=== PATIENT | male | born 1980 | race Caucasian/White ===

== ENCOUNTER 2017-12-20 20:13 | Emergency (ER) | payer OTHER, SELFPAY ==
--- NOTE | 2017-12-20 20:23 | EDPHYS ---
Physician Documentation [facility] Name: Juan Diego Morgan Age: 37 yrs Sex: Male : 1980 Arrival Date: 12/20/2017 Time: 20:14 Bed 4 Private MD: ED Physician Miguel Ontiveros HPI: 12/20 20:16 This 37 yrs old Male presents to ER via Unassigned with complaints of drug gopal abuse, fear of seizures. 20:16 The patient presents with trouble concentrating. Onset: The symptoms/episode gopal began/occurred just prior to arrival. Possible causes: drug use, benzodiazepines, vicodin, soma. Associated signs and symptoms: The patient has no apparent associated signs or symptoms. Current symptoms: In the emergency department the patient's symptoms are unchanged from the initial presentation. Patient's baseline: Neuro: alert and fully oriented. The patient has experienced similar episodes in the past, multiple times. Historical: - Allergies: 20:24 No Known Allergies; tl2 - Home Meds: 20:24 Soma Oral [Active]; Vicodin 5/500 Oral [Active]; Xanax Oral [Active]; tl2 - PMHx: 20:24 Chronic Abdominal Pain; Depression; Seizures; tl2 - Immunization history:: Adult Immunizations up to date. - Social history:: Smoking status: Patient/guardian denies using tobacco, Patient uses street drugs. - Family history:: not pertinent. - Ebola Screening: : No symptoms or risks identified at this time. ROS: 20:16 Constitutional: Negative for fever, chills, and weight loss, Eyes: Negative for injury, gopal pain, redness, and discharge, ENT: Negative for injury, pain, and discharge, Neck: Negative for injury, pain, and swelling, Cardiovascular: Negative for chest pain, palpitations, and edema, Respiratory: Negative for shortness of breath, cough, wheezing, and pleuritic chest pain, Abdomen/GI: Negative for abdominal pain, nausea, vomiting, diarrhea, and constipation, Back: Negative for injury and pain, : Negative for injury, bleeding, discharge, and swelling, MS/Extremity: Negative for injury and deformity, Skin: Negative for injury, rash, and discoloration, Psych: Negative for depression, anxiety, suicide ideation, homicidal ideation, and hallucinations, Allergy/Immunology: Negative for hives, rash, and allergies, Endocrine: Negative for neck swelling, polydipsia, polyuria, polyphagia, and marked weight changes. 20:16 Neuro: Positive for slurred speech. Exam: 20:16 Constitutional: This is a well developed, well nourished patient who is awake, alert, gopal and in no acute distress. Head/Face: Normocephalic, atraumatic. Eyes: Pupils equal round and reactive to light, extra-ocular motions intact. Lids and lashes normal. Conjunctiva and sclera are non-icteric and not injected. Cornea within normal limits. Periorbital areas with no swelling, redness, or edema. ENT: Nares patent. No nasal discharge, no septal abnormalities noted. Tympanic membranes are normal and external auditory canals are clear. Oropharynx with no redness, swelling, or masses, exudates, or evidence of obstruction, uvula midline. Mucous membranes moist. Neck: Trachea midline, no thyromegaly or masses palpated, and no cervical lymphadenopathy. Supple, full range of motion without nuchal rigidity, or vertebral point tenderness. No Meningismus. Chest/axilla: Normal chest wall appearance and motion. Nontender with no deformity. No lesions are appreciated. Cardiovascular: Regular rate and rhythm with a normal S1 and S2. No gallops, murmurs, or rubs. Normal PMI, no JVD. No pulse deficits. Respiratory: Lungs have equal breath sounds bilaterally, clear to auscultation and percussion. No rales, rhonchi or wheezes noted. No increased work of breathing, no retractions or nasal flaring. Abdomen/GI: Soft, non-tender, with normal bowel sounds. No distension or tympany. No guarding or rebound. No evidence of tenderness throughout. Back: No spinal tenderness. No costovertebral tenderness. Full range of motion. Male : Normal genitalia with no discharge or lesions. Skin: Warm, dry with normal turgor. Normal color with no rashes, no lesions, and no evidence of cellulitis. MS/ Extremity: Pulses equal, no cyanosis. Neurovascular intact. Full, normal range of motion. Psych: Awake, alert, with orientation to person, place and time. Behavior, mood, and affect are within normal limits. 20:16 Neuro: Orientation: is normal, appropriate for stated age, no acute changes, Mentation: is normal, no acute changes, slow to respond, Memory: is normal, appropriate for stated age, no acute changes, Cranial nerves: grossly normal, is grossly normal based on the patient's age, no acute changes, Cerebellar function: is grossly normal, is grossly normal based on the patient's age, no acute changes, Motor: is normal, is grossly normal based on the patient's age, Sensation: is normal, no obvious gross deficits, Gait: not tested. Deep tendon reflexes are 2+ (normal) in the bilateral brachioradialis, bicep, tricep and patellar and Achilles tendons, seizure activity, is not displayed by the patient. Vital Signs: 20:24 tl2 20:24 Pt refused vitals tl2 MDM: 20:14 Patient medically screened. gopal Administered Medications: No medications were administered Disposition: 12/20/17 20:22 Discharged to Home. Impression: Abuse of non-psychoactive substances. - Condition is Stable. - Discharge Instructions: Substance Use Disorder. - Medication Reconciliation Form, Thank You Letter, Antibiotic Education, Prescription Opioid Use form. - Follow up: Private Physician; When: 2 - 3 days; Reason: Recheck today's complaints, Continuance of care, Re-evaluation by your physician. - Problem is new. - Symptoms have improved. Signatures: Miguel Ontiveros MD MD cha Knox, Taylor RN RN tl2 Corrections: (The following items were deleted from the chart) 20:55 20:22 12/20/2017 20:22 Discharged to Home. Impression: Abuse of non-psychoactive tl2 substances. Condition is Stable. Forms are Medication Reconciliation Form, Thank You Letter, Antibiotic Education, Prescription Opioid Use. Follow up: Private Physician; When: 2 - 3 days; Reason: Recheck today's complaints, Continuance of care, Re-evaluation by your physician. Problem is new. Symptoms have improved. gopal
--- NOTE | 2017-12-20 20:57 | ER ---
Nurse's Notes [facility] Name: Juan Diego Morgan Age: 37 yrs Sex: Male : 1980 Arrival Date: 12/20/2017 Time: 20:14 Bed 4 Private MD: Diagnosis: Abuse of non-psychoactive substances Presentation: 12/20 20:21 Presenting complaint: EMS states: Pt was taking xanax, vicodin and soma and was afraid tl2 he was going to have a seizure. No seizure activity witnessed. Transition of care: patient was not received from another setting of care. Onset of symptoms was December 20, 2017 at 20:22. Risk Assessment: Do you want to hurt yourself or someone else? Patient reports no desire to harm self or others. Initial Sepsis Screen: Does the patient meet any 2 criteria? No. Patient's initial sepsis screen is negative. Does the patient have a suspected source of infection? No. Patient's initial sepsis screen is negative. Care prior to arrival: Medication(s) given: Normal saline infusion, 100 mL IV initiated. 18 GA, in the right antecubital area, Glucose check: 97. 20:21 Method Of Arrival: EMS: [facility] tl2 20:21 Acuity: GEOVANY 4 tl2 Triage Assessment: 20:24 General: Appears in no apparent distress. uncomfortable, Behavior is agitated, tl2 uncooperative. Pain: Denies pain. Neuro: Level of Consciousness is awake, alert, Oriented to person, place, time, situation. Cardiovascular: Denies chest pain. Respiratory: Airway is patent Respiratory effort is even, unlabored, Respiratory pattern is regular, symmetrical. GI: No signs and/or symptoms were reported involving the gastrointestinal system. Derm: Skin is pink, warm \T\ dry. Historical: - Allergies: 20:24 No Known Allergies; tl2 - Home Meds: 20:24 Soma Oral [Active]; Vicodin 5/500 Oral [Active]; Xanax Oral [Active]; tl2 - PMHx: 20:24 Chronic Abdominal Pain; Depression; Seizures; tl2 - Immunization history:: Adult Immunizations up to date. - Social history:: Smoking status: Patient/guardian denies using tobacco, Patient uses street drugs. - Family history:: not pertinent. - Ebola Screening: : No symptoms or risks identified at this time. Screenin:26 Abuse screen: Denies threats or abuse. Nutritional screening: No deficits noted. tl2 Tuberculosis screening: No symptoms or risk factors identified. Fall Risk None identified. Assessment: 20:26 General: see triage assessment. Pt is refusing medical care and stating for the tl2 officers to just take him to custodial. MD at bedside speaking to pt. states that pt can be taken into custody. Awaiting dispo. 20:53 Reassessment: Pt verbalized understanding of leaving without medical treatment and that tl2 he would be leaving with law enforcement. Vital Signs: 20:24 tl2 20:24 Pt refused vitals tl2 ED Course: 20:14 Patient arrived in ED. [facility] 20:14 Miguel Ontiveros MD is Attending Physician. [facility] 20:19 Patricia Long, RN is Primary Nurse. tl2 20:23 Triage completed. tl2 20:24 Arm band placed on right wrist. tl2 20:26 Patient has correct armband on for positive identification. Bed in low position. Call tl2 light in reach. Side rails up X2. Security at bedside. 20:26 Maintain EMS IV. Dressing intact. Good blood return noted. Site clean \T\ dry. Gauge \T\ tl 2 site: 18 g R AC. 20:54 No provider procedures requiring assistance completed. IV discontinued, intact, tl2 bleeding controlled, No redness/swelling at site. Pressure dressing applied. Administered Medications: No medications were administered Outcome: 20:22 Discharge ordered by . [facility] 20:54 Discharged to Law Enforcement tl2 20:54 Condition: stable 20:54 Discharge instructions given to patient, Instructed on follow up and referral plans. 20:55 Patient left the ED. tl2 Signatures: Miguel Ontiveros MD MD cha Knox, Taylor, RN RN tl2 Corrections: (The following items were deleted from the chart) 20:55 20:54 Patient admitted, IV remains in place. tl2 tl2
== END 2017-12-20 20:55 | disposition home or self-care (01) ==
LOC: ER 20:13
DX: F55.8 Abuse of other non-psychoactive substances (principal); F32.9 Major depressive disorder, single episode, unspecified
CPT/HCPCS: 99284

== ENCOUNTER 2018-10-16 22:39 | Emergency (ER) | payer OTHER, SELFPAY ==
[2018-10-16 23:51] LABS: Absolute Lymphocytes (CBC) 1.6 K/uL (0.7-4.9); Basophils % 1.1 % (0-1.3); Hematocrit 38.5 % (39.6-49.0); Lymphocytes % 27.4 % (15.3-44.8); MPV 8.5 fL (7.6-11.3); RBC Red Blood Cell Count 4.08 M/uL (4.33-5.43)
[2018-10-16] MEDS ORDERED: NA CHLORIDE 0.9% 1,000 ML ONE (23:52)
[2018-10-16 23:55] LABS: Protime INR 0.98
[2018-10-17 00:03] LABS: BUN Blood Urea Nitrogen 16 mg/dL (7-18); Bicarbonate 29 mmol/L (21-32); Glucose Level 103 mg/dL (74-106); Potassium 4.2 mmol/L (3.5-5.1); Sodium Level 146 mmol/L (136-145)
[2018-10-17 00:04] LABS: ALT/SGPT 32 U/L (12-78); AST/SGOT 27 U/L (15-37); Albumin 3.7 g/dL (3.4-5.0); Alkaline Phosphatase 70 U/L (45-117); Bilirubin Direct < 0.1 mg/dL (0-0.2); Bilirubin Total 0.2 mg/dL (0.2-1.0); Magnesium 2.3 mg/dL (1.8-2.4); NT PRO-BNP 65 pg/mL (<125); Troponin (Emerg Dept Use Only) < 0.02 ng/mL (0.0-0.045)
[2018-10-17 00:05] LABS: Urine Blood NEGATIVE (NEG); Urine Glucose NEGATIVE (NEG); Urine Protein NEGATIVE (NEG)
[2018-10-17 00:06] LABS: Barbiturates NEGATIVE (NEGATIVE); Benzodiazepines NEGATIVE (NEGATIVE); Cocaine NEGATIVE (NEGATIVE); METHAMPHETAM NEGATIVE (NEGATIVE); Methadone NEGATIVE (NEGATIVE); Opiates POSITIVE (NEGATIVE); Phencyclidine NEGATIVE (NEGATIVE); THC Cannibis NEGATIVE (NEGATIVE)
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
--- NOTE | 2018-10-17 06:41 | EKG ---
Test Date: 2018-10-16 Test Time: 23:12:30 Sample Finisher: LIN MEASUREMENT RESULTS: Intervals: Rate: 75 DE: 172 QRSD: 90 QT: 378 QTc: 422 [place]: P: 44 DE: 172 QRS: -50 T: 20 INTERPRETIVE STATEMENTS: Normal sinus rhythm Left axis deviation Abnormal ECG Compared to ECG 04/24/2017 22:52:06 Left-axis deviation now present Incomplete right bundle-branch block no longer present Left anterior fascicular block no longer present Electronically Signed On 10-17-18 06:41:19 CDT by Kiran Solorio
--- NOTE | 2018-10-17 08:34 | RAD REPORT ---
EXAM DESCRIPTION: USExtrem Venous W Compress Bil10/17/2018 12:21 am CLINICAL HISTORY: Bilateral leg swelling COMPARISON: none FINDINGS: The common femoral, superficial femoral, popliteal and posterior tibial veins bilaterally are compressible and demonstrate augmentation. Doppler demonstrates good flow. Mildly prominent right inguinal lymph nodes. IMPRESSION: No evidence of deep venous thrombosis involving either lower extremity. Mildly prominent right inguinal lymph nodes. These probably are reactive in nature. Follow up ultraso und in 3 months recommended to assess stability/resolution
--- NOTE | 2018-10-17 08:34 | RAD REPORT ---
[facility] DES[facility] 11:42 pm CLINICAL HISTORY: Cough COMPARISON: 2013 FINDINGS: Right lateral costophrenic sulcus is not entirely included in the field view and is not ev aluated The visualized lungs appear clear of acute infiltrate. The heart is normal size
== END 2018-10-17 00:37 | disposition home or self-care (01) ==
LOC: ER 22:39
DX: R60.9 Edema, unspecified (principal); F55.8 Abuse of other non-psychoactive substances; Z71.6 Tobacco abuse counseling; Z72.0 Tobacco use; F32.9 Major depressive disorder, single episode, unspecified
CPT/HCPCS: 36415; 71045; 80048; 80076; 80307; 80320; 80329; 81003; 83735; 83880; 84484; 85025; 85610; 85730; 93005; 93970; 96360; 99285; J7030

== ENCOUNTER 2019-10-10 10:08 | Emergency (ER) | payer OTHER ==
[2019-10-10] MEDS ORDERED: LIDOCAINE 1% 20 ML MDV ONE (10:35)
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
== END 2019-10-10 11:56 | disposition home or self-care (01) ==
LOC: ER 10:08
PROC: 0JQN0ZZ Repair Right Lower Leg Subcutaneous Tissue and Fascia, Open Approach (ICD-10-PCS; principal; 2019-10-10)
DX: S81.811A Laceration without foreign body, right lower leg, initial encounter (principal); W22.03XA Walked into furniture, initial encounter; Y93.9 Activity, unspecified; Y92.009 Unspecified place in unspecified non-institutional (private) residence as the place of occurrence of the external cause; F17.210 Nicotine dependence, cigarettes, uncomplicated
CPT/HCPCS: 99284

== ENCOUNTER 2021-08-23 12:08 | Emergency (ER) | payer OTHER, SELFPAY ==
[2021-08-23] MEDS ORDERED: D50W 25 GM/50 ML SYRINGE IV ONE (12:09)
[2021-08-23] MEDS ORDERED: Caclcium Chloride 10% INJ SYR IV ONE (12:09)
[2021-08-23] MEDS ORDERED: EPINEPHrine 1 MG/10 ML SYR IV ONE (12:09)
[2021-08-23] MEDS ORDERED: DEXTROSE 10%-WATER 500 ML IV ONE (12:19)
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
--- NOTE | 2021-08-23 13:20 | EDPHYS ---
Physician Documentation [facility] Name: Juan Diego Morgan Age: 41 yrs Sex: Male : 1980 Arrival Date: 08/23/2021 Time: 12:11 Bed 3 Private MD: ED Physician Maged Barber HPI: 08/23 12:22 This 41 yrs old Male presents to ER via Unassigned with complaints of CPR. kdr 12:22 Preceding the arrest, the patient was found down by family. kdr 13:04 The arrest occurred at home. Pre-hospital course: The arrest was not witnessed by kdr others. Bystanders at the scene did not perform CPR. EMS care prior to arrival: initiation of ACLS, peripheral IV, intubation oxygen, backboard, EMS call time was 11:27. EMS on scene time was 45 minutes were spent at scene. Time elapsed prior to ACLS is unknown. ACLS has been in progress for 45 minutes. It is unknown whether or not the patient has had similar symptoms in the past. It is unknown whether or not the patient has recently seen a physician. Patient has a long history of drug abuse according to EMS. Police also report that the patient was known to be abusing cocaine, benzodiazepines and possibly Percocet. It is unknown how long the patient had been down. He did been approximately 2 hours that the patient had been on his own prior to being discovered. On EMS arrival the initial rhythm was asystole. Despite standard ACLS algorithm utilization, the patient did not regain any spontaneous rhythm. His skin appeared extremely mottled on arrival to the ED. This would appear to indicate that he had been down for some time. His pupils were also fixed and dilated.. Historical: - PMHx: 12:30 Chronic Abdominal Pain; Depression; Seizures; ss - Immunization history:: unknown. - Social history:: Smoking status: unknown. ROS: 13:04 Constitutional: Secondary to altered/unresponsive kdr 13:04 Unable to obtain ROS due to obtunded state, patient is on ventilator. Exam: 13:04 Constitutional: This is a well developed, well nourished patient who is awake, alert, kdr and in no acute distress. Head/Face: Normocephalic, atraumatic. Chest/axilla: Normal chest wall appearance and motion. Nontender with no deformity. No lesions are appreciated. 13:04 Eyes: Pupils: are fixed and dilated. 13:04 Skin: Appearance: Moisture: Patient has significant mottling to his head and face and shoulders.. Vital Signs: 12:08 Pulse 0; Resp 18 A; Pulse Ox 80% on ETT ambu; ss 12:19 Temp 95.4(R); ss Sumrall Coma Score: 12:08 Eye Response: none(1). Verbal Response: none(1). Motor Response: none(1). Total: 3. ss MDM: 13:04 Data reviewed: vital signs, nurses notes. Counseling: I had a detailed discussion with kdr the patient and/or guardian regarding: the historical points, exam findings, and any diagnostic results supporting the discharge/admit diagnosis. 13:19 Patient medically screened. kdr 08/23 12:29 Order name: Glucose, Ancillary Testing EDMS Administered Medications: 12:09 Drug: EPINEPHrine 0.1mg/mL 1:10,000 1 mg Route: IVP; Site: left forearm; ss 12:12 Follow up: Response: No change in condition ss 12:12 Drug: D50W 50 ml Route: IVP; Site: left forearm; ss 12:19 Follow up: Response: No change in condition ss 12:14 Drug: EPINEPHrine 0.1mg/mL 1:10,000 1 mg Route: IVP; Site: right forearm; ss 12:16 Follow up: Response: No change in condition ss 12:14 Drug: NS 0.9% 1000 ml Route: IV; Rate: 1000 ml; Site: left forearm; ss 12:19 Follow up: IV Status: TOD, converted to SL ss 12:14 Drug: D10W 250 ml Route: IV; Rate: bolus; Site: left forearm; ss 12:19 Follow up: IV Status: TOD Disposition: 13:04 . kdr Disposition Summary: 08/23/21 13:19 Patient Location: [facility] Pronouncing Physician: Maged Barber [facility] Time of : 12:19 08/23/2021 kdr Diagnosis - Cardiopulmonary arrest kdr Signatures: Maged Barber MD MD kdr Jennifer Valderrama, TEDDY RN ss
[2021-08-23 14:33] VITALS: O2SAT 80
[2021-08-23 14:34] VITALS: TEMP 95.4
== END 2021-08-23 13:57 ==
LOC: ER 12:08
DX: I46.9 Cardiac arrest, cause unspecified (principal); F32.A Depression, unspecified; R56.9 Unspecified convulsions
CPT/HCPCS: 82947; 92950; 99285; J0171